=== PATIENT | male | born 1970 | race Caucasian/White ===

== ENCOUNTER 2021-01-19 21:54 | Emergency (ER) | payer OTHER ==
[~2021-01-19] VITALS: Ht 177.8 cm; Wt 83.9 kg
[2021-01-19 22:10] VITALS: BP_SYST 162
--- NOTE | 2021-01-19 22:10 | NUR ---
PT TO BED 5 FOR EVALUATION.
--- NOTE | 2021-01-19 22:15 | NUR ---
Received patient to Er w/ c/o generalized h/a 2nd to elevated b/p for not taking his b/p medications for past x6 months. No neuro focal deficits noted. Introduced self to patient and family. Positioned for comfort and safety w/ bed to low position sr up. continue to monitor. Patient resting quietly. No acute distress noted. Vital signs within normal range.
--- NOTE | 2021-01-19 22:20 | NUR ---
EKG performed at BS by EMT Rafael. Physician given copy of EKG for review.
--- NOTE | 2021-01-19 23:35 | NUR ---
Blood for labwork drawn from [facility]. Patient tolerated procedure.
[2021-01-19 23:47] LABS: BASOPHILS # (AUTO) 0.1 K/uL (0.0-0.2); BASOPHILS % (AUTO) 0.6 % (0.0-2.0); EOSINOPHILS % (AUTO) 0.5 % (0.0-4.0); HEMATOCRIT 40.1 % (36-54); LYMPHOCYTES # (AUTO) 1.4 K/uL (1.0-5.5); LYMPHOCYTES % (AUTO) 14.4 % (20.5-51.5); MEAN CORPUSCULAR HEMOGLOBIN 32 pg (27-31); MEAN CORPUSCULAR HGB CONC 35 % (32-36); MEAN CORPUSCULAR VOLUME 92 fL (79.0-98.0); MONOCYTES # (AUTO) 0.6 K/uL (0.0-1.0); MONOCYTES % (AUTO) 6.3 % (1.7-9.3); NEUTROPHILS # (AUTO) 7.8 K/uL (1.8-7.7); NEUTROPHILS % (AUTO) 78.2 % (40.0-70.0); PLATELET COUNT (AUTO) 163 K/uL (130-430); RED BLOOD CELL COUNT(AUTO) 4.34 MIL/uL (4.2-6.2); RED CELL DISTRIBUTION WIDTH 12.8 % (9.0-15.0)
[2021-01-19 23:52] LABS: CALCIUM 9.4 mg/dL (8.4-11.0); CREATININE 0.98 mg/dL (0.55-1.30); POTASSIUM 4.1 mmol/L (3.5-5.1)
[2021-01-19 23:58] LABS: ALBUMIN 4.1 g/dL (3.4-4.8); TOTAL BILIRUBIN 0.6 mg/dL (0.0-1.0)
[2021-01-20 00:08] VITALS: BP_SYST 149
[2021-01-20] MEDS ORDERED: LISI-209 PO (00:15)
[2021-01-20] MEDS ORDERED: LISINOPRIL 10 MG TABLET (PRINIVIL) PO ONE (00:15)
[2021-01-20] MEDS ORDERED: CLON0.1T PO (00:20)
--- NOTE | 2021-01-20 00:28 | NUR ---
Medicated per MD orders. Will cont to monitor will observe for any adverse reaction. Patient given written and verbal discharge instructions and verbalizes understanding. ER MD discussed with patient the results and treatment provided. Patient in stable condition. ID arm band removed. Rx of clonidine and zestril given. Patient educated on pain management and to follow up with PMD. Pain Scale . Opportunity for questions provided and answered. Medication side effect fact sheet provided.
== END 2021-01-20 00:28 | disposition home or self-care (01) ==
LOC: SED 21:54
DX: I10 Essential (primary) hypertension (principal); R07.89 Other chest pain; R42 Dizziness and giddiness
CPT/HCPCS: 36415; 71045; 80053; 84484; 85025; 93005; 99285